=== PATIENT | female | born 2000 | race Caucasian/White ===

== ENCOUNTER → 2020-12-26 | Outpatient (CLI) | payer OTHER ==
[~2020-12-26] MED LIST: ADMELOG100 UNIT/1 SC; BUSPIRONE HCL15 MG PO; CETIRIZINE HCL10 MG PO; CRANBERRY500 M3 PO; FAMOTIDINE20 MG PO; FLUCONAZOLE150 MG PO; FLUOXETINE HCL40 MG PO; GENERESS FE CH1 EACH PO; LEVOTHYROXINE100 MCG PO; MELOXICAM15 MG PO; METHOCARBAMOL500 MG PO; TRAMADOL HCL50 MG PO; VITAMIN D350 MC3 PO
[2020-12-26 10:17] LABS: GLUCOSE,CSF 99 mg/dL (50-80); TOTAL PROTEIN,CSF 34 mg/dL (20-45)
[2020-12-26 10:53] LABS: RBC (AUTOMATED) 100 10^6 (0); WBC (AUTOMATED 4 10^3 (0-5)
[2020-12-26 10:54] LABS: WBC (AUTOMATED 2 10^3 (0-5)
[2020-12-28 14:11] LABS: CSF IGG INDEX 0.9 (0.0-0.7); IMMUNOGLOBULIN G, QN, SERUM 1206 mg/dL (586-1602)
[2020-12-28 18:17] LABS: MYELIN BASIC PROTEIN, CSF 2.2 ng/mL (0.0-2.9)
== END ==
LOC: RAD 07:36
PROVIDERS: Psychiatry & Neurology Neurology
DX: G35 Multiple sclerosis (principal); E66.9 Obesity, unspecified
CPT/HCPCS: 36415; 82040; 82784; 82945; 83873; 83916; 84157; 85049; 85610; 85730; 87015; 87070; 87116; 87205; 87210; 87252; 89051

== ENCOUNTER → 2021-08-20 | Outpatient (CLI) | payer OTHER | LOC: EMI 11:00 | DX: R90.89 Other abnormal findings on diagnostic imaging of central nervous system (principal) | CPT/HCPCS: 70551 ==